=== PATIENT | male | born 1975 | race Caucasian/White ===

== ENCOUNTER 2017-03-25 13:18 | Emergency (ER) | payer OTHER ==
[~2017-03-25] VITALS: Ht 182.8 cm; Wt 108.9 kg
[~2017-03-25 13:18] MED LIST: ANTIVERT25 MG PO; ASPIRIN81 MG PO; FLEXERIL10 MG PO; LISINOPRIL40 MG PO; MEDROL DOSEPAK4 MG PO; PENICILLIN VK500 MG PO; PHENERGAN25 M1 PO; PRILOSEC20 M1 PO; TRAMADOL HCL50 MG PO; VIBRAMYCIN100 MG PO; ZITHROMAX Z PA250 MG PO
[2017-03-25] MEDS ORDERED: BACTRIM DS 8001 TA1 PO (15:31)
== END 2017-03-25 15:24 | disposition home or self-care (01) ==
LOC: ED 13:18
DX: S61.412A Laceration without foreign body of left hand, initial encounter (principal); F17.200 Nicotine dependence, unspecified, uncomplicated; Z88.0 Allergy status to penicillin; Z88.1 Allergy status to other antibiotic agents; W26.0XXA Contact with knife, initial encounter; Y93.89 Activity, other specified; Y92.9 Unspecified place or not applicable; Y99.9 Unspecified external cause status

== ENCOUNTER 2017-07-20 10:21 | Emergency (ER) | payer OTHER ==
[~2017-07-20] VITALS: Ht 175.2 cm; Wt 108.9 kg
[~2017-07-20 10:21] MED LIST changes: +BACTRIM DS 8001 TA1 PO
[2017-07-20] MEDS ORDERED: ATORVASTATIN CA80 M1 PO (10:28)
[2017-07-20] MEDS ORDERED: ASPIRIN CHEWABL81 MG PO (10:29)
[2017-07-20] MEDS ORDERED: Tobrex Ophth S2.5 ML OPH (10:33)
== END 2017-07-20 10:52 | disposition home or self-care (01) ==
LOC: ED 10:21
DX: H00.024 Hordeolum internum left upper eyelid (principal); R03.0 Elevated blood-pressure reading, without diagnosis of hypertension; F17.200 Nicotine dependence, unspecified, uncomplicated; I25.2 Old myocardial infarction; Z79.899 Other long term (current) drug therapy; Z79.82 Long term (current) use of aspirin; Z88.0 Allergy status to penicillin; Z88.1 Allergy status to other antibiotic agents

== ENCOUNTER 2018-05-02 20:42 | Emergency (ER) | payer OTHER ==
[~2018-05-02] VITALS: Ht 182.8 cm; Wt 109.3 kg
[~2018-05-02 20:42] MED LIST changes: +ASPIRIN CHEWABL81 MG PO; +ATORVASTATIN CA80 M1 PO; +Tobrex Ophth S2.5 ML OPH
== END 2018-05-02 23:27 | disposition home or self-care (01) ==
LOC: ED 20:42
DX: M79.661 Pain in right lower leg (principal); Z88.0 Allergy status to penicillin; Z88.1 Allergy status to other antibiotic agents; Z79.899 Other long term (current) drug therapy; Z79.82 Long term (current) use of aspirin

== ENCOUNTER 2018-08-07 17:30 | Emergency (ER) | payer OTHER ==
[~2018-08-07] VITALS: Ht 182.8 cm; Wt 113.4 kg
[2018-08-07 18:15] LABS: BASO % 0.5 % (0.0-1.0); EOS # 0.1 10*3/uL (0.0-0.4); EOS % 1.3 % (1.0-4.0); HEMATOCRIT 47.9 % (42.0-52.0); HEMOGLOBIN 16.5 g/dl (14.0-18.0); MEAN CELL VOLUME 86.5 fl (80.0-94.0); MEAN CORPUSCULAR HGB 29.8 pg (27.0-31.0); MEAN CORPUSCULAR HGB CONC 34.4 g/dl (33.0-37.0); MEAN PLATELET VOLUME 9.7 fl (9.6-12.3); MONO # 0.5 10*3/uL (0.1-1.0); MONO % 7.6 % (3.0-9.0); NEUT # 3.7 10*3/uL (2.3-7.9); NEUT % 58.4 % (47.0-73.0); PLATELET COUNT AUTOMATED 227 10*3/uL (130-400); RED BLOOD COUNT 5.54 10*6/uL (4.50-5.90); WHITE BLOOD COUNT 6.3 10*3/uL (4.8-10.8)
[2018-08-07 18:32] LABS: ALBUMIN 3.9 gm/dl (3.1-4.5); ALKALINE PHOSPHATASE 113 U/L (45-117); BUN 18 mg/dl (7-24); CHLORIDE 105 mmol/L (98-107); CREATININE 1.19 mg/dL (0.70-1.30); LIPASE 120 U/L (73-393); SGOT/AST 14 IU/L (3-35); SGPT/ALT 27 U/L (12-78); SODIUM 138 mmol/L (136-145); TOTAL PROTEIN 7.1 gm/dL (6.4-8.2)
[2018-08-07 18:37] LABS: BILIRUBIN NEGATIVE (NEGATIVE); BLOOD NEGATIVE (NEGATIVE); CLARITY SL CLOUDY (CLEAR); COLOR YELLOW (YELLOW); GLUCOSE NEGATIVE (NEGATIVE); KETONE NEGATIVE (NEGATIVE); LEUKO ESTERASE NEGATIVE (NEGATIVE); NITRITE NEGATIVE (NEGATIVE); UROBILINOGEN 0.2 E.U./dl (0.2-1.0)
[2018-08-07 18:44] LABS: HYALINE CAST 31-40
[2018-08-07 18:45] LABS: BACTERIA 1+
[2018-10-17] MEDS ORDERED: METOPROLOL TART50 M1 PO (08:29)
== END 2018-08-07 20:25 | disposition home or self-care (01) ==
LOC: ED 17:30
PROVIDERS: Physician Assistant
DX: R10.32 Left lower quadrant pain (principal); M54.5 Low back pain; R35.0 Frequency of micturition; R05 Cough; Z88.1 Allergy status to other antibiotic agents; Z88.0 Allergy status to penicillin; Z79.899 Other long term (current) drug therapy; Z79.82 Long term (current) use of aspirin

== ENCOUNTER → 2018-10-17 | Day surgery (SDC) | payer OTHER ==
[~2018-10-17] VITALS: Ht 182.8 cm; Wt 115.2 kg
[~2018-10-17] MED LIST changes: +METOPROLOL TART50 M1 PO; +PREDNISONE50 MG PO; +ZITHROMAX250 MG PO
--- NOTE | ~2018-10-17 | PROC NOTE ---
[place], [place] PROCEDURE NOTE NAME: [id number] UNIT #: [id number] ROOM: DOCTOR: KAMERON GARNICA MD BIRTHDATE: [birth year] DOS: 10/17/2018 PROCEDURE: Esophagogastroduodenoscopy and biopsy. INDICATIONS: GERD. An informed consent was obtained from the patient after indication of procedures, alternatives, and potential complications were explained to him. PROCEDURE MEDICATION: Sedation was administered by Anesthesiology Department. Scope used was Olympus diagnostic adult upper endoscope GIF-180, depth of insertion was to descending duodenum. FINDINGS: After adequate sedation, the patient was placed in left lateral decubitus position, scope was introduced under direct visualization through the upper esophageal sphincter into the esophagus. Esophageal mucosa appeared normal with no ulcerations or strictures. Lower esophageal sphincter was identified at 38 cm from incisors. Normal appearing Z line. The stomach was then intubated. Moderate gastritis was seen with no discrete ulcers or active bleeding. YOSELIN test was performed from the gastric antrum and body. Retroflex view in the rectum, the fundus showed no evidence of hiatal hernia. Pylorus was intubated easily. Duodenal mucosa showed thin folds suggestive of possible celiac sprue and biopsies were obtained. The scope was then withdrawn after the stomach was decompressed. The patient tolerated the procedure well. IMPRESSION: 1. Errtjhbe-ym-momunu gastritis, YOSELIN test performed. 2. Thin duodenal folds, random biopsies obtained. PLAN: We will review the histopathology and YOSELIN test results and treat the patient accordingly. Office followup will be scheduled in 2-3 weeks. KAMERON GARNICA MD CM:PROCNOTE:PROCEDURE NOTE [id number] KAMERON GARNICA MD
[2018-10-17 08:45] VITALS: BP 142/92
[2018-10-17 09:24] VITALS: BP 119/90
[2018-10-17 09:39] VITALS: BP 132/92
[2018-10-17 09:54] VITALS: BP 127/94
== END | disposition home or self-care (01) ==
LOC: SDC 10-13 10:15
DX: K29.60 Other gastritis without bleeding (principal); K21.9 Gastro-esophageal reflux disease without esophagitis; I25.2 Old myocardial infarction; I25.10 Atherosclerotic heart disease of native coronary artery without angina pectoris; I10 Essential (primary) hypertension; F17.210 Nicotine dependence, cigarettes, uncomplicated; E66.9 Obesity, unspecified; Z68.34 Body mass index [BMI] 34.0-34.9, adult; Z88.0 Allergy status to penicillin; Z79.82 Long term (current) use of aspirin; Z95.5 Presence of coronary angioplasty implant and graft; Z79.899 Other long term (current) drug therapy

== ENCOUNTER 2018-10-21 10:41 | Emergency (ER) | payer OTHER ==
[~2018-10-21] VITALS: Ht 182.8 cm; Wt 111.1 kg
[~2018-10-21 10:41] MED LIST changes: -PREDNISONE50 MG PO; -ZITHROMAX250 MG PO
[2018-10-21] MEDS ORDERED: PREDNISONE50 MG PO (12:49)
[2018-10-21] MEDS ORDERED: ZITHROMAX250 MG PO (12:49)
== END 2018-10-21 12:57 | disposition home or self-care (01) ==
LOC: ED 10:41
DX: J20.9 Acute bronchitis, unspecified (principal); F17.200 Nicotine dependence, unspecified, uncomplicated; Z79.899 Other long term (current) drug therapy; Z79.82 Long term (current) use of aspirin; Z88.0 Allergy status to penicillin; Z88.1 Allergy status to other antibiotic agents

== ENCOUNTER → 2019-02-16 | Outpatient (CLI) | payer OTHER ==
[~2019-02-16] MED LIST changes: +INDOMETHACIN50 MG PO; +PREDNISONE50 MG PO; +ZITHROMAX250 MG PO
== END | disposition home or self-care (01) ==
LOC: CARD 07:43
DX: Z02.1 Encounter for pre-employment examination (principal); I11.9 Hypertensive heart disease without heart failure; I25.10 Atherosclerotic heart disease of native coronary artery without angina pectoris

== ENCOUNTER 2019-05-18 12:07 | Emergency (ER) | payer OTHER ==
[~2019-05-18] VITALS: Ht 182.8 cm; Wt 108.9 kg
[~2019-05-18 12:07] MED LIST changes: -INDOMETHACIN50 MG PO
[2019-05-18] MEDS ORDERED: INDOMETHACIN50 MG PO (14:03)
== END 2019-05-18 14:16 | disposition home or self-care (01) ==
LOC: ED 12:07
DX: M10.072 Idiopathic gout, left ankle and foot (principal); F17.200 Nicotine dependence, unspecified, uncomplicated; Z88.0 Allergy status to penicillin; Z88.1 Allergy status to other antibiotic agents; Z79.82 Long term (current) use of aspirin; Z79.899 Other long term (current) drug therapy

== ENCOUNTER 2019-07-08 22:37 | Emergency (ER) | payer OTHER ==
[~2019-07-08] VITALS: Ht 182.8 cm; Wt 104.3 kg
--- NOTE | ~2019-07-08 | EKG ---
[place], [place] ELECTROCARDIOGRAM REPORT NAME: FAYE HERNANDEZ UNIT #: [id number] ROOM: DOCTOR: EPIPHANY DRAFT REPORT BIRTHDATE: [birth year] [facility] Test Date: 2019-07-08 Test Time: 23:15:15 Pat Name: FAYE HERNANDEZ Department: Room: Gender: Financial Compliance Manager: : 1975 Requested By: HA SANCHEZ PA-C Order Number: [id number] Reading MD: Grayson Portillo MD Measurements Intervals [place] Rate: 59 P: 12 ME: 171 QRS: 2 QRSD: 103 T: 23 QT: 379 QTc: 376 Interpretive Statements Sinus arrhythmia Ventricular premature complex Anterior infarct, old Electronically Signed On 07-09-2019 8:16:30 PDT by Grayson Portillo MD CM:EKGRPT:ELECTROCARDIOGRAM REPORT [id number] HA SANCHEZ PA-C EPIPHANY DRAFT REPORT HA SANCHEZ PA-C
[~2019-07-08 22:37] MED LIST changes: +INDOMETHACIN50 MG PO
[2019-07-09] MEDS ORDERED: MEDROL DOSEPAK4 MG PO (00:22)
[2019-07-09] MEDS ORDERED: NAPROSYN500 MG PO (00:22)
== END 2019-07-09 01:00 | disposition home or self-care (01) ==
LOC: ED 22:37
DX: M19.012 Primary osteoarthritis, left shoulder (principal); I25.2 Old myocardial infarction; Z88.0 Allergy status to penicillin; Z88.1 Allergy status to other antibiotic agents; Z79.899 Other long term (current) drug therapy; Z79.82 Long term (current) use of aspirin

== ENCOUNTER 2019-09-10 19:17 | Emergency (ER) | payer OTHER ==
[~2019-09-10] VITALS: Ht 182.8 cm; Wt 106.1 kg
[~2019-09-10 19:17] MED LIST changes: +NAPROSYN500 MG PO
[2019-09-10] MEDS ORDERED: ANTIBIOTIC28.4 GM T (20:40)
[2019-09-10] MEDS ORDERED: SEPTDS PO (20:40)
== END 2019-09-10 22:11 | disposition home or self-care (01) ==
LOC: ED 19:17
DX: S61.213A Laceration without foreign body of left middle finger without damage to nail, initial encounter (principal); E11.9 Type 2 diabetes mellitus without complications; I10 Essential (primary) hypertension; I25.2 Old myocardial infarction; Z88.0 Allergy status to penicillin; Z88.1 Allergy status to other antibiotic agents; Z79.899 Other long term (current) drug therapy; Z79.82 Long term (current) use of aspirin; Z87.891 Personal history of nicotine dependence; W29.8XXA Contact with other powered hand tools and household machinery, initial encounter; Y93.89 Activity, other specified; Y92.89 Other specified places as the place of occurrence of the external cause; Y99.8 Other external cause status

== ENCOUNTER 2022-02-21 11:00 | Emergency (ER) | payer OTHER ==
[~2022-02-21] VITALS: Wt 118.4 kg
[~2022-02-21 11:00] MED LIST changes: +ANTIBIOTIC28.4 GM T; +SEPTDS PO
[2022-02-21 11:19] LABS: BASO # 0.1 10*3/uL (0.0-0.1); BASO % 0.6 % (0.0-1.0); EOS # 0.2 10*3/uL (0.0-0.4); EOS % 1.2 % (1.0-4.0); HEMATOCRIT 51.2 % (42.0-52.0); LYMPH # 4.5 10*3/uL (1.3-4.4); LYMPH % 36.3 % (27.0-41.0); MEAN CELL VOLUME 84.3 fl (80.0-94.0); MEAN CORPUSCULAR HGB 28.8 pg (27.0-31.0); MEAN CORPUSCULAR HGB CONC 34.2 g/dl (33.0-37.0); MEAN PLATELET VOLUME 9.9 fl (9.6-12.3); MONO # 1.2 10*3/uL (0.1-1.0); MONO % 9.3 % (3.0-9.0); NEUT # 6.4 10*3/uL (2.3-7.9); NEUT % 52.1 % (47.0-73.0); PLATELET COUNT AUTOMATED 388 10*3/uL (130-400); RED BLOOD COUNT 6.07 10*6/uL (4.50-5.90); WHITE BLOOD COUNT 12.4 10*3/uL (4.8-10.8)
[2022-02-21 11:30] LABS: ACT PARTIAL THROMBO TIME 26.5 SECONDS (20.0-32.1)
[2022-02-21 11:35] LABS: ALKALINE PHOSPHATASE 113 U/L (45-117); BUN 14 mg/dl (7-24); CHLORIDE 109 mmol/L (98-107); CREATININE 1.31 mg/dL (0.70-1.30); LIPASE 88 U/L (73-393); POTASSIUM 2.8 mmol/L (3.5-5.1); SGOT/AST 16 IU/L (3-35); SGPT/ALT 32 U/L (12-78); SODIUM 140 mmol/L (136-145); TOTAL PROTEIN 7.3 gm/dL (6.4-8.2)
== END 2022-02-21 13:02 | disposition short-term general hospital (02) ==
LOC: ED 11:00
PROVIDERS: Emergency Medicine
DX: I21.3 ST elevation (STEMI) myocardial infarction of unspecified site (principal); I25.2 Old myocardial infarction; Z88.0 Allergy status to penicillin; Z88.1 Allergy status to other antibiotic agents; Z79.899 Other long term (current) drug therapy; Z79.82 Long term (current) use of aspirin

== ENCOUNTER → 2022-03-13 | Outpatient (CLI) | payer OTHER ==
[2022-03-13 14:17] LABS: BASO % 0.6 % (0.0-1.0); EOS # 0.1 10*3/uL (0.0-0.4); EOS % 1.8 % (1.0-4.0); HEMATOCRIT 45.5 % (42.0-52.0); LYMPH # 1.6 10*3/uL (1.3-4.4); LYMPH % 23.5 % (27.0-41.0); MEAN CELL VOLUME 83.6 fl (80.0-94.0); MEAN CORPUSCULAR HGB 29.2 pg (27.0-31.0); MEAN CORPUSCULAR HGB CONC 34.9 g/dl (33.0-37.0); MEAN PLATELET VOLUME 10.2 fl (9.6-12.3); MONO # 0.5 10*3/uL (0.1-1.0); MONO % 7.8 % (3.0-9.0); NEUT # 4.5 10*3/uL (2.3-7.9); NEUT % 66.2 % (47.0-73.0); PLATELET COUNT AUTOMATED 266 10*3/uL (130-400); RED BLOOD COUNT 5.44 10*6/uL (4.50-5.90); RETICULOCYTE % 1.59 % (0.50-2.50); WHITE BLOOD COUNT 6.8 10*3/uL (4.8-10.8)
[2022-03-13 14:46] LABS: ALKALINE PHOSPHATASE 116 U/L (45-117); BUN 8 mg/dl (7-24); CHLORIDE 109 mmol/L (98-107); CHOLESTEROL 129 mg/dL (<200); CREATININE 1.02 mg/dL (0.70-1.30); GAMMA GLUTAMYL TRANSPEPTIDASE 33 U/L (15-85); IRON 99 ug/dL (65-175); LDL CHOLESTEROL 53 mg/dL (9-159); POTASSIUM 3.6 mmol/L (3.5-5.1); SGOT/AST 19 IU/L (3-35); SGPT/ALT 37 U/L (12-78); SODIUM 137 mmol/L (136-145); TOTAL IRON BINDING CAPACITY 250 ug/dl (250-450); TOTAL PROTEIN 6.8 gm/dL (6.4-8.2); TRIGLYCERIDES 209 mg/dl (<150)
[2022-03-13 14:55] LABS: FERRITIN 120.2 ng/mL (22.0-322.0); VITAMIN D, 25-HYDROXY 28.9 ng/mL (30-100)
[2022-03-13 16:17] LABS: BILIRUBIN Negative (Negative); BLOOD Negative (Negative); CLARITY Clear (Clear); COLOR Yellow (Yellow); GLUCOSE Negative (Negative); KETONE Negative (Negative); LEUKO ESTERASE Negative (Negative); NITRITE Negative (Negative); PH 5.5 (4.5-8.0); UROBILINOGEN 0.2 E.U./dl (0.0-1.0)
[2022-03-13 16:35] LABS: BACTERIA TRACE; RBC 0-2 rbc/hpf (0-2); WBC 0-2 wbc/hpf (0-5)
== END | disposition home or self-care (01) ==
LOC: LAB 13:33
PROVIDERS: ATTEND Family Medicine
DX: E78.5 Hyperlipidemia, unspecified (principal); E55.9 Vitamin D deficiency, unspecified; R79.89 Other specified abnormal findings of blood chemistry; R53.83 Other fatigue; R74.8 Abnormal levels of other serum enzymes

== ENCOUNTER → 2022-04-09 | Outpatient (CLI) | payer OTHER | END | disposition home or self-care (01) | LOC: CARD 11:29 | PROVIDERS: ATTEND Internal Medicine | DX: I25.10 Atherosclerotic heart disease of native coronary artery without angina pectoris (principal) ==

== ENCOUNTER → 2022-07-04 | Outpatient (CLI) | payer OTHER ==
[2022-07-04 10:11] LABS: BASO % 0.5 % (0.0-1.0); EOS # 0.1 10*3/uL (0.0-0.4); EOS % 1.5 % (1.0-4.0); HEMATOCRIT 49.6 % (42.0-52.0); LYMPH # 1.6 10*3/uL (1.3-4.4); LYMPH % 19.7 % (27.0-41.0); MEAN CELL VOLUME 87.6 fl (80.0-94.0); MEAN CORPUSCULAR HGB 29.5 pg (27.0-31.0); MEAN CORPUSCULAR HGB CONC 33.7 g/dl (33.0-37.0); MEAN PLATELET VOLUME 9.9 fl (9.6-12.3); MONO # 0.6 10*3/uL (0.1-1.0); MONO % 7.6 % (3.0-9.0); NEUT # 5.5 10*3/uL (2.3-7.9); NEUT % 70.4 % (47.0-73.0); PLATELET COUNT AUTOMATED 290 10*3/uL (130-400); RED BLOOD COUNT 5.66 10*6/uL (4.50-5.90); RED CELL DISTRI WIDTH 14.1 % (0-14.5); RETICULOCYTE % 1.93 % (0.50-2.50); WHITE BLOOD COUNT 7.9 10*3/uL (4.8-10.8)
[2022-07-04 10:14] LABS: BILIRUBIN Negative (Negative); BLOOD Negative (Negative); CLARITY Cloudy (Clear); COLOR Yellow (Yellow); GLUCOSE Negative (Negative); KETONE Negative (Negative); LEUKO ESTERASE Negative (Negative); NITRITE Negative (Negative)
[2022-07-04 10:28] LABS: ALKALINE PHOSPHATASE 114 U/L (45-117); BUN 12 mg/dl (7-24); CHLORIDE 110 mmol/L (98-107); CHOLESTEROL 145 mg/dL (<200); GAMMA GLUTAMYL TRANSPEPTIDASE 28 U/L (15-85); IRON 96 ug/dL (65-175); LDL CHOLESTEROL 66 mg/dL (9-159); SGOT/AST 12 IU/L (3-35); SGPT/ALT 29 U/L (12-78); SODIUM 140 mmol/L (136-145); TRIGLYCERIDES 220 mg/dl (<150)
[2022-07-04 10:33] LABS: RBC 0-2 rbc/hpf (0-2); WBC 0-2 wbc/hpf (0-5)
== END | disposition home or self-care (01) ==
LOC: LAB 09:49
PROVIDERS: ATTEND Family Medicine
DX: E78.5 Hyperlipidemia, unspecified (principal); E55.9 Vitamin D deficiency, unspecified; R79.89 Other specified abnormal findings of blood chemistry; R53.83 Other fatigue; R74.8 Abnormal levels of other serum enzymes

== ENCOUNTER 2022-09-01 16:34 | Emergency (ER) | payer OTHER ==
[~2022-09-01] VITALS: Ht 182.8 cm; Wt 112.0 kg
[2022-09-01] MEDS ORDERED: HYDROCODONE-AC1 EAC1 PO (19:03)
[2022-09-01] MEDS ORDERED: MEDROL DOSEPAK4 MG PO (19:03)
== END 2022-09-01 19:24 | disposition home or self-care (01) ==
LOC: ED 16:34
DX: S49.92XA Unspecified injury of left shoulder and upper arm, initial encounter (principal); Z79.899 Other long term (current) drug therapy; Z79.82 Long term (current) use of aspirin; Z88.0 Allergy status to penicillin; Z88.1 Allergy status to other antibiotic agents; V29.99XA Rider (driver) (passenger) of other motorcycle injured in unspecified traffic accident, initial encounter; Y93.89 Activity, other specified; Y92.89 Other specified places as the place of occurrence of the external cause; Y99.8 Other external cause status

== ENCOUNTER → 2022-10-24 | Outpatient (CLI) | payer OTHER ==
[~2022-10-24] MED LIST changes: +HYDROCODONE-AC1 EAC1 PO
== END | disposition home or self-care (01) ==
LOC: MRI 02:35
PROVIDERS: ATTEND Family Medicine
DX: S42.142A Displaced fracture of glenoid cavity of scapula, left shoulder, initial encounter for closed fracture (principal); S46.812A Strain of other muscles, fascia and tendons at shoulder and upper arm level, left arm, initial encounter; M25.512 Pain in left shoulder; X58.XXXA Exposure to other specified factors, initial encounter; Y93.89 Activity, other specified; Y92.89 Other specified places as the place of occurrence of the external cause; Y99.8 Other external cause status

== ENCOUNTER → 2023-03-28 | Day surgery (SDC) | payer OTHER ==
[2023-03-25 13:30] VITALS: BP 124/75
[2023-03-25 14:23] LABS: BUN 9 mg/dl (9-23); CHLORIDE 104 mmol/L (98-107); POTASSIUM 3.9 mmol/L (3.4-5.1)
[~2023-03-28] VITALS: Ht 182.8 cm; Wt 118.4 kg
[~2023-03-28] MED LIST changes: +LOPID600 M1 PO; +METOPROLOL SUCC25 M2 PO; +PERCOCET 5-3251 EACH PO; +PROTONIX40 MG PO; +ZESTRIL10 MG PO
[2023-03-28 14:34] VITALS: BP 141/95
[2023-03-28 14:49] VITALS: BP 131/93
[2023-03-28 15:04] VITALS: BP 135/90
[2023-03-28 15:19] VITALS: BP 140/90
[2023-03-28 15:34] VITALS: BP 136/88
== END ==
LOC: SDC 03-25 13:15
PROVIDERS: ATTEND Orthopaedic Surgery
DX: M75.42 Impingement syndrome of left shoulder (principal); M75.102 Unspecified rotator cuff tear or rupture of left shoulder, not specified as traumatic; F17.210 Nicotine dependence, cigarettes, uncomplicated; Z79.899 Other long term (current) drug therapy; Z98.890 Other specified postprocedural states

== ENCOUNTER → 2023-04-26 | Outpatient (CLI) | payer OTHER | LOC: ORTHO 04-25 13:22 | PROVIDERS: ATTEND Orthopaedic Surgery | DX: M75.102 Unspecified rotator cuff tear or rupture of left shoulder, not specified as traumatic (principal); M75.42 Impingement syndrome of left shoulder ==

== ENCOUNTER → 2023-08-23 | Outpatient (CLI) | payer OTHER ==
[2023-08-23 09:59] LABS: HEMATOCRIT 47.9 % (42.0-52.0); MEAN CELL VOLUME 85.8 fl (80.0-94.0); MEAN CORPUSCULAR HGB 29.6 pg (27.0-31.0); MEAN CORPUSCULAR HGB CONC 34.4 g/dl (33.0-37.0); MEAN PLATELET VOLUME 9.9 fl (9.6-12.3); PLATELET COUNT AUTOMATED 267 10*3/uL (130-400); RED BLOOD COUNT 5.58 10*6/uL (4.50-5.90); RED CELL DISTRI WIDTH 13.2 % (0-14.5); RETICULOCYTE % 1.79 % (0.50-2.50); WHITE BLOOD COUNT 6.2 10*3/uL (4.8-10.8)
[2023-08-23 10:42] LABS: ALKALINE PHOSPHATASE 118 U/L (46-116); BUN 7 mg/dl (9-23); CHLORIDE 108 mmol/L (98-107); CHOLESTEROL 144 mg/dL (<200); GAMMA GLUTAMYL TRANSPEPTIDASE 21 U/L (0-73); LDL CHOLESTEROL 72 mg/dL (9-159); POTASSIUM 3.6 mmol/L (3.4-5.1); SGPT/ALT 18 U/L (-49); T3 UPTAKE 20.9 % (22.4-36.7); THYROXINE (T4) TOTAL 8.7 ug/dl (4.5-10.9); TOTAL PROTEIN 6.5 gm/dL (6.0-8.0); TRIGLYCERIDES 210 mg/dl (<150); URIC ACID 6.9 mg/dL (3.7-9.2)
[2023-08-23 10:45] LABS: VITAMIN D, 25-HYDROXY 32.4 ng/mL (30-100)
[2023-08-23 11:16] LABS: ATYPICAL LYMPHS 2 % (0-0); BASOPHILS 1 % (0-1); PLATELET SUFFICIENCY NORMAL (NORMAL); TOTAL CELLS COUNTED 100 #CELLS
[2023-08-24 02:07] LABS: TOTAL PROTEIN, SERUM 6.3 g/dL (6.0-8.5)
[2023-08-26 13:06] LABS: ANTI-DSDNA ANTIBODIES 1 IU/mL (0-9)
[2023-08-26 15:06] LABS: A/G RATIO 1.4 (0.7-1.7); ALBUMIN 3.7 g/dL (2.9-4.4); ALPHA-1-GLOBULIN 0.2 g/dL (0.0-0.4); ALPHA-2-GLOBULIN 0.7 g/dL (0.4-1.0); BETA GLOBULIN 0.9 g/dL (0.7-1.3); GAMMA GLOBULIN 0.7 g/dL (0.4-1.8); GLOBULIN, TOTAL 2.6 g/dL (2.2-3.9); M-SPIKE Not Observed g/dL (Not Observed)
== END | disposition home or self-care (01) ==
LOC: LAB 09:16
PROVIDERS: ATTEND Family Medicine
DX: E78.5 Hyperlipidemia, unspecified (principal); E55.9 Vitamin D deficiency, unspecified; R79.89 Other specified abnormal findings of blood chemistry; R53.83 Other fatigue; R74.8 Abnormal levels of other serum enzymes

== ENCOUNTER → 2023-09-23 | Outpatient (CLI) | payer OTHER ==
[2023-09-23 15:35] LABS: BASO % 0.4 % (0.0-1.0); EOS # 0.2 10*3/uL (0.0-0.4); EOS % 2.2 % (1.0-4.0); HEMATOCRIT 47.9 % (42.0-52.0); LYMPH # 1.7 10*3/uL (1.3-4.4); LYMPH % 24.7 % (27.0-41.0); MEAN CELL VOLUME 86.8 fl (80.0-94.0); MEAN CORPUSCULAR HGB 29.7 pg (27.0-31.0); MEAN CORPUSCULAR HGB CONC 34.2 g/dl (33.0-37.0); MEAN PLATELET VOLUME 9.8 fl (9.6-12.3); MONO # 0.4 10*3/uL (0.1-1.0); MONO % 5.7 % (3.0-9.0); NEUT # 4.7 10*3/uL (2.3-7.9); NEUT % 66.9 % (47.0-73.0); PLATELET COUNT AUTOMATED 245 10*3/uL (130-400); RED BLOOD COUNT 5.52 10*6/uL (4.50-5.90)
== END | disposition home or self-care (01) ==
LOC: LAB 15:04
PROVIDERS: ATTEND Internal Medicine Hematology & Oncology
DX: D72.89 Other specified disorders of white blood cells (principal); R06.02 Shortness of breath

== ENCOUNTER 2024-03-31 17:36 | Emergency (ER) | payer OTHER ==
[~2024-03-31] VITALS: Ht 175.2 cm; Wt 117.0 kg
[2024-03-31] MEDS ORDERED: Dexamethasone Sodium Phospha 20 MG/5 ML VIAL IM ONE (19:45)
[2024-03-31] MEDS ORDERED: diphenhydrAMINE hydrochloride 50 MG/ML VIAL IM ONE (19:45)
[2024-03-31] MEDS ORDERED: PREDNISONE20 M1 PO (20:29)
== END 2024-03-31 20:54 | disposition home or self-care (01) ==
LOC: ED 17:36
DX: L50.0 Allergic urticaria (principal); T36.8X5A Adverse effect of other systemic antibiotics, initial encounter; M19.90 Unspecified osteoarthritis, unspecified site; Z88.0 Allergy status to penicillin; Z88.1 Allergy status to other antibiotic agents; Z79.899 Other long term (current) drug therapy; Z79.82 Long term (current) use of aspirin; Y92.89 Other specified places as the place of occurrence of the external cause

== ENCOUNTER → 2024-04-06 | Outpatient (CLI) | payer OTHER ==
[~2024-04-06] MED LIST changes: +PREDNISONE20 M1 PO
[2024-04-06 09:12] LABS: BASO % 0.2 % (0.0-1.0); EOS # 0.1 10*3/uL (0.0-0.4); EOS % 0.6 % (1.0-4.0); LYMPH # 2.7 10*3/uL (1.3-4.4); LYMPH % 16.4 % (27.0-41.0); MEAN CELL VOLUME 88.7 fl (80.0-94.0); MEAN CORPUSCULAR HGB CONC 33.8 g/dl (33.0-37.0); MEAN PLATELET VOLUME 9.6 fl (9.6-12.3); MONO # 0.8 10*3/uL (0.1-1.0); MONO % 5.1 % (3.0-9.0); NEUT # 12.5 10*3/uL (2.3-7.9); NEUT % 76.8 % (47.0-73.0); PLATELET COUNT AUTOMATED 353 10*3/uL (130-400); RED BLOOD COUNT 5.64 10*6/uL (4.50-5.90); RED CELL DISTRI WIDTH 13.2 % (0-14.5); RETICULOCYTE % 1.92 % (0.50-2.50); WHITE BLOOD COUNT 16.2 10*3/uL (4.8-10.8)
[2024-04-06 09:40] LABS: ALKALINE PHOSPHATASE 108 U/L (46-116); BUN 13 mg/dl (9-23); CHLORIDE 106 mmol/L (98-107); CHOLESTEROL 150 mg/dL (<200); GAMMA GLUTAMYL TRANSPEPTIDASE 24 U/L (0-73); LDL CHOLESTEROL 78 mg/dL (9-159); POTASSIUM 3.5 mmol/L (3.4-5.1); SGPT/ALT 19 U/L (5-49); T3 UPTAKE 33.8 % (22.4-36.7); THYROXINE (T4) TOTAL 6.6 ug/dl (4.5-10.9); TOTAL PROTEIN 6.2 gm/dL (6.0-8.0); TRIGLYCERIDES 149 mg/dl (<150)
[2024-04-06 09:52] LABS: VITAMIN D, 25-HYDROXY 29.3 ng/mL (30-100)
[2024-04-06 10:03] LABS: BILIRUBIN Negative (Negative); BLOOD Negative (Negative); CLARITY Clear (Clear); COLOR Yellow (Yellow); GLUCOSE Negative (Negative); KETONE Negative (Negative); LEUKO ESTERASE Negative (Negative); NITRITE Negative (Negative); PH 6.5 (4.5-8.0); SPECIFIC GRAVITY 1.015 (1.001-1.030); UROBILINOGEN 0.2 E.U./dl (0.0-1.0)
[2024-04-06 10:13] LABS: EPITHELIAL CELLS 0-2; RBC 0-2 rbc/hpf (0-2); WBC 0-2 wbc/hpf (0-5)
[2024-04-07 05:06] LABS: HBSAG Negative (Negative); HEP B CORE AB, IGM Negative (Negative); HEPATITIS C ANTIBODY Non Reactive (Non Reactive)
== END | disposition home or self-care (01) ==
LOC: LAB 08:49
PROVIDERS: ATTEND Family Medicine
DX: E78.5 Hyperlipidemia, unspecified (principal); E55.9 Vitamin D deficiency, unspecified; R79.89 Other specified abnormal findings of blood chemistry; R53.83 Other fatigue; R74.8 Abnormal levels of other serum enzymes

== ENCOUNTER 2024-12-16 22:02 | Emergency (ER) | payer OTHER ==
[~2024-12-16] VITALS: Ht 177.8 cm; Wt 117.9 kg
[2024-12-16 22:26] LABS: BASO % 0.6 % (0.0-1.0); EOS # 0.1 10*3/uL (0.0-0.4); EOS % 1.8 % (1.0-4.0); HEMATOCRIT 46.2 % (42.0-52.0); MEAN CELL VOLUME 88.2 fl (80.0-94.0); MEAN CORPUSCULAR HGB 28.8 pg (27.0-31.0); MEAN CORPUSCULAR HGB CONC 32.7 g/dl (33.0-37.0); MEAN PLATELET VOLUME 9.5 fl (9.6-12.3); MONO # 0.6 10*3/uL (0.1-1.0); MONO % 8.7 % (3.0-9.0); NEUT # 3.3 10*3/uL (2.3-7.9); NEUT % 49.8 % (47.0-73.0); PLATELET COUNT AUTOMATED 288 10*3/uL (130-400); RED BLOOD COUNT 5.24 10*6/uL (4.50-5.90); RED CELL DISTRI WIDTH 13.2 % (0-14.5); WHITE BLOOD COUNT 6.6 10*3/uL (4.8-10.8)
[2024-12-16 22:48] LABS: ALKALINE PHOSPHATASE 98 U/L (46-116); BUN 9 mg/dl (9-23); CHLORIDE 107 mmol/L (98-107); POTASSIUM 3.5 mmol/L (3.4-5.1); SGPT/ALT 19 U/L (5-49); TOTAL PROTEIN 6.4 gm/dL (6.0-8.0)
[2024-12-16] MEDS ORDERED: Lidocaine Hydrochloride 15 ML UDC PO STA (23:01)
[2024-12-16] MEDS ORDERED: Dicyclomine Hydrochloride 20 MG/10 ML OSYR PO STA (23:01)
[2024-12-16] MEDS ORDERED: MG-AL HYDROXIDE/SIMETICONE 30 ML UDC PO STA (23:01)
== END 2024-12-17 00:51 | disposition home or self-care (01) ==
LOC: ED 22:02
PROVIDERS: Internal Medicine
DX: R07.89 Other chest pain (principal); I10 Essential (primary) hypertension; E78.00 Pure hypercholesterolemia, unspecified; F17.200 Nicotine dependence, unspecified, uncomplicated; Z88.0 Allergy status to penicillin; Z88.1 Allergy status to other antibiotic agents

== ENCOUNTER → 2025-07-01 | Outpatient (CLI) | payer OTHER ==
[2025-07-01 15:30] LABS: BILIRUBIN Negative (Negative); BLOOD Negative (Negative); CLARITY Clear (Clear); COLOR Yellow (Yellow); KETONE Negative (Negative); LEUKO ESTERASE Trace (Negative); NITRITE Negative (Negative); PH 6.0 (4.5-8.0); SPECIFIC GRAVITY 1.010 (1.001-1.030); UROBILINOGEN 1.0 E.U./dl (0.0-1.0)
[2025-07-01 15:30] LABS: BASO # 0.0 10*3/uL (0.0-0.1); BASO % 0.4 % (0.0-1.0); EOS # 0.1 10*3/uL (0.0-0.4); EOS % 1.3 % (1.0-4.0); MEAN CELL VOLUME 88.0 fl (80.0-94.0); MEAN CORPUSCULAR HGB 29.0 pg (27.0-31.0); MEAN PLATELET VOLUME 9.8 fl (9.6-12.3); MONO # 0.6 10*3/uL (0.1-1.0); MONO % 6.3 % (3.0-9.0); NEUT # 7.0 10*3/uL (2.3-7.9); NEUT % 71.9 % (47.0-73.0); NUCLEATED RED BLOOD CELL 0.0 % (0.0-0.0); NUCLEATED RED BLOOD CELL 0.0 10*3/uL (0.0-0.0); PLATELET COUNT AUTOMATED 298 10*3/uL (130-400); RED CELL DISTRI WIDTH 13.7 % (0-14.5); RETICULOCYTE % 1.81 % (0.50-2.50)
[2025-07-01 15:55] LABS: BACTERIA 1+; MUCOUS TRACE; RBC 0-2 rbc/hpf (0-2)
[2025-07-01 15:57] LABS: BUN 8 mg/dl (9-23); GAMMA GLUTAMYL TRANSFERASE 21 U/L (0-73); LDL CHOLESTEROL 93 mg/dL (9-159); SGPT/ALT 17 U/L (5-49); T3 UPTAKE 24.8 % (22.4-36.7); THYROXINE (T4) TOTAL 9.3 ug/dl (4.5-10.9)
[2025-07-01 16:11] LABS: VITAMIN D, 25-HYDROXY 45.4 ng/mL (30-100)
[2025-07-02 12:07] LABS: ANTI-DSDNA ANTIBODIES 1 IU/mL (0-9)
== END ==
LOC: LAB 14:58
PROVIDERS: ATTEND Family Medicine
DX: E78.5 Hyperlipidemia, unspecified (principal); R79.89 Other specified abnormal findings of blood chemistry; E55.9 Vitamin D deficiency, unspecified